=== PATIENT | female | born 1985 ===

== ENCOUNTER 2020-01-08 12:28 | Inpatient (IN) ==
[2020-01-08] MEDS ORDERED: Metoclopramide 10 MG/2 ML VIAL IVP PRN (12:43)
[2020-01-08] MEDS ORDERED: Famotidine 20 MG/2 ML VIAL IVP PRN (12:43)
[2020-01-08] MEDS ORDERED: Lidocaine 1% 20 ML MDV INFILT PRN (12:43)
[2020-01-08] MEDS ORDERED: Naloxone 0.4 MG/ML INJ IVP PRN (12:43)
[2020-01-08] MEDS ORDERED: miSOPROStoL 25 MCG TABLET PO PRN (12:43)
[2020-01-08] MEDS ORDERED: Ondansetron 4 MG/2 ML VIAL IVP PRN (12:43)
[2020-01-08] MEDS ORDERED: Oxytocin 20 units/ LR 1000 mL 20 UNIT/1,000 ML BAG IVC SCH (12:45)
[2020-01-08] MEDS ORDERED: Penicillin G Potassium 5,000,000 UNIT in 0.9 % Sodium Chloride Mini Bag 100 ML IVPB ONE ×2 (12:46→20:15)
[2020-01-08] MEDS: Ringers Solution, Lactated 1,000 ML IVC SCH ×2 (16:18→20:23)
[2020-01-08 16:22] LABS: Basophils % 0.2 %; Eosinophils % 0.2 %; Hematocrit 36.5 % (35.3-44.9); Hemoglobin 12.4 g/dL (11.5-15.4); Immature Granulocytes % 0.3 % (0-4); Lymphocytes # 1.3 K/mcL (0.6-4.6); Lymphocytes % 9.7 %; Mean Corpuscular Hemoglobin 31.5 pg (28.0-33.3); Mean Corpuscular Volume 92.6 fL (83.0-100.0); Mean Platelet Volume 10.2 fL (9.4-12.4); Monocytes # 0.7 K/mcL (0.0-1.3); Monocytes % 5.7 %; Neutrophils # 10.9 K/mcL (1.6-8.9); Platelet Count 237 K/mcL (140-400); Red Blood Count 3.94 M/mcL (3.82-4.97); Segmented Neutrophils % 83.9 %
[2020-01-08 18:12] LABS: Amphetamine Screen,Urine Negative ng/mL (Cutoff=1000); Barbiturate Screen,Urine Negative ng/mL (Cutoff=200); Benzodiazepines Screen,Urine Negative ng/mL (Cutoff=200); Cannabinoid Screen,Urine Negative ng/mL (Cutoff = 50); Cocaine Screen,Urine Negative ng/mL (Cutoff= 300); Opiate Screen,Urine Negative ng/mL (Cutoff=300); Phencyclidine Screen,Urine Negative ng/mL (Cutoff=25)
[2020-01-08] MEDS: Penicillin G Potassium 2,500,000 UNIT in 0.9 % Sodium Chloride 100 ML IVPB SCH (20:24)
[2020-01-09] MEDS: Penicillin G Potassium 2,500,000 UNIT in 0.9 % Sodium Chloride 100 ML IVPB SCH ×2 (00:42→04:32)
[2020-01-09] MEDS: *HR* FentaNYL (PF) 100 MCG/2 ML VIAL IVP PRN ×2 (02:31→05:04)
[2020-01-09] MEDS ORDERED: EPHEDrine 50 MG/ML VIAL IVP PRN (06:54)
[2020-01-09] MEDS ORDERED: Epidural Premix (fent/bupiv) 110 ML EP SCH (07:00)
[2020-01-09] MEDS ORDERED: Epidural Premix (fent/bupiv) 110 ML EP ONE (07:03)
[2020-01-09] MEDS: Ringers Solution, Lactated 1,000 ML IVC SCH (07:35)
[2020-01-09] MEDS ORDERED: Acetaminophen 325 MG TABLET PO PRN (12:47)
[2020-01-09] MEDS ORDERED: Oxytocin 20 units/ LR 1000 mL 20 UNIT/1,000 ML BAG IVC SCH (12:47)
[2020-01-09] MEDS ORDERED: Benzocaine/Menthol 56 GM AEROSOL SPRAY TP PRN (12:47)
[2020-01-09] MEDS ORDERED: Lanolin 7 G OINT...G. TP PRN (12:47)
[2020-01-09] MEDS: Ibuprofen 600 MG TABLET PO PRN (13:04)
[2020-01-10] MEDS: Ibuprofen 600 MG TABLET PO PRN ×2 (05:08→12:20)
[2020-01-10] MEDS ORDERED: Prenatal Vit/FA 1 EACH TABLET PO SCH (09:00)
[2020-01-10 09:06] VITALS: BP 109/67
== END 2020-01-10 12:22 | disposition home or self-care (01) | DRG 806 ==
LOC: 1NENULAB 12:28 → 1NENUOBS 01-09 14:51
PROVIDERS: ADMIT Registered Nurse; ATTEND Registered Nurse